=== PATIENT | female | born 1950 | race Caucasian/White ===

== ENCOUNTER 2021-07-26 15:11 | Emergency (ER) | payer OTHER ==
[~2021-07-26] VITALS: Ht 157.5 cm; Wt 99.8 kg
--- NOTE | ~2021-07-26 | EMS ---
[address] [address] EMS Patient Care Report Name: CLARIBEL DAVIS Room #: DEP BRITTANY Nunez#: [id number] Admission: 07/26/21 Attend Phys: Discharge: 07/26/21 Date of : 54 Report #: [id number] THIS REPORT FOR: //name// Report Transmitted: 07/28/2021 10:58 EMS Care Summary [place], [place]/[facility] Incident [id number] @ 07/26/2021 14:48 Incident Location [id number] [facility] [address] Patient CLARIBEL DAVIS Female, 71 Years 1950 Patient Address [id number] [place], [place] [id number] Patient History Hypertension (HTN),Bipolar II Disorder, Patient Allergies No known allergies, Patient Medications Metoprolol, Olanzapine, Lisinopril, Lamotrigine, Chief Complaint HEART PALPATATIONS/ANXIETY Disposition Transported No Lights/[place] Dispatch Reason Sick Person Transported To [facility] Narrative SCENE: ON ARRIVAL PT FOUND SITTING UPRIGHT IN CHAIR IN LIVING ROOM OF ADDRESS PROVIDED. PT IS AWAKE AND ALERT WITH A GCS OF 15. PT REPORTS SHE HAD TWO EPISODES TODAY WHERE SHE FELT HER HEART RACING, IF SHE WERE HAVING AN [address] [address] EMS Patient Care Report Name: CLARIBEL DAVIS Room #: DEP ER Enrique#: [id number] Admission: 07/26/21 Attend Phys: Discharge: 07/26/21 Date of : 54 Report #: [id number] ANXIETY ATTACK. PT REPORTS SHE IS CURRENTLY COMPLAINT FREE. PT ASSISTED TO EMS STRETCHER. AMBULANCE: PT REPORTS SHE HAS A HISTORY OF [facility] BUT HASN'T HAD AN EPISODE IN YEARS AND DOES NOT REMEMBER THE MEDICINE SHE IS PRESCRIBED FOR IT. PT DENIES ALL OTHER COM Initial Vitals @15:05P: 66,R: 14,Pain: 0/10,GCS: 15, @15:07P: 89,R: 16,BP: 97/33,GCS: 15,Revised Trauma: 12, Assessments @14:58MENTAL:No Abnormalities,SKIN:No Abnormalities,HEENT:Head/Face: No Abnormalities,Eyes: No Abnormalities,Neck/Airway: No Abnormalities,LUNG SOUNDS:General: No Abnormalities,Left Upper: No Abnormalities,Right Upper: No Abnormalities,Left Lower: No Abnormalities,Right Lower: No Abnormalities,ABDOMEN:General: No Abnormalities,Left Upper: No Abnormalities,Right Upper: No Abnormalities,Left Lower: No Abnormalities,Right Lower: No Abnormalities,PELVIS//GI:No Abnormalities,EXTREMITIES:Left Arm: No Abnormalities,Right Arm: No Abnormalities,Left Leg: No Abnormalities,Right Leg: No Abnormalities,PULSE:NEURO:No Abnormalities,@15:07MENTAL:No Abnormalities,SKIN:No Abnormalities,HEENT:Head/Face: No Abnormalities,Eyes: No Abnormalities,Neck/Airway: No Abnormalities,LUNG SOUNDS:General: No Abnormalities,Left Upper: No Abnormalities,Right Upper: No Abnormalities,Left Lower: No Abnormalities,Right Lower: No Abnormalities,ABDOMEN:General: No Abnormalities,Left Upper: No Abnormalities,Right Upper: No Abnormalities,Left Lower: No Abnormalities,Right Lower: No Abnormalities,PELVIS//GI:No Abnormalities,EXTREMITIES:Left Arm: No Abnormalities,Right Arm: No Abnormalities,Left Leg: No Abnormalities,Right Leg: No Abnormalities,PULSE:NEURO:No Abnormalities, Impression Chest Pain, Other (Non-Cardiac) Procedures @14:57ALS AssessmentResponse: UnchangedSucceeded@14:58StretcherResponse: Unchanged Timeline 14:47,Call Received 14:47,Dispatch Notified 14:48,Dispatched 14:49,En Route 14:54,On Scene 14:56,At Patient 14:57,ALS Assessment,Response: UnchangedSucceeded, [facility] [address] [place] [address] EMS Patient Care Report Name: CLARIBEL DAVIS Room #: DEP BRITTANY Nunez#: [id number] Admission: 07/26/21 Attend Phys: Discharge: 07/26/21 Date of : 54 Report #: [id number] 14:58,Stretcher,Response: Unchanged 15:02,Depart Scene 15:05,BP: / M,PULSE: 66,RR: 14 R,SPO2: Ox,ETCO2: ,BG: ,PAIN: 0,GCS: 15, 15:07,BP: 97/33 M,PULSE: 89,RR: 16 R,SPO2: Ox,ETCO2: ,BG: ,PAIN: ,GCS: 15, 15:09,At Destination 15:25,Call Closed Disclaimer v1.1 Copyright 2020 [employer] This EMS Care Summary contains data elements from the applicable legal record (which may be displayed differently). It is designed to provide pertinent information for the following purposes: continuity of care, clinical quality, and state data reporting. The complete legal record is available to ED staff and administrators of the receiving hospital in [email or web address]'s Patient Tracker. All data is provided "as is."
[2021-07-26 15:42] LABS: ABSOLUTE NEUTROPHILS 5.5 thou/uL (1.4-8.2); BASOPHILS 0.6 % (0.0-2.0); EOSINOPHILS 0.7 % (0.0-3.0); HEMATOCRIT 39.9 % (37.0-47.0); HEMOGLOBIN 13.4 gm/dL (12.0-15.0); LYMPHOCYTES 19.8 % (24.0-44.0); MCHC 33.5 g/dL (28.0-37.0); MCV 86.6 fL (80.0-100.0); MONOCYTES 6.3 % (1.0-8.0); PLATELET COUNT 218 thou/uL (150-400); POLYS 72.6 % (36.0-66.0); RBC 4.61 mil/uL (4.20-5.00); RDW 13.8 % (10.5-14.5); WBC 7.5 thou/uL (4.0-11.0)
[2021-07-26 15:50] LABS: CALCIUM 9.1 mg/dL (8.5-10.1); POTASSIUM 4.2 mmol/L (3.5-5.1)
[2021-07-26 18:21] VITALS: BP 188/92
--- NOTE | 2021-07-28 07:30 | EKG ---
[facility] [employer] [place] [address] ELECTROCARDIOGRAM REPORT Name: CLARIBEL DAVIS Room #[id number] Admission: 07/26/21 Attend Phys: Discharge: 07/26/21 Date of : 54 Report #: [id number] [facility] ED Test Date: 2021-07-26 Test Time: 15:18:30 Pat Name: CLARIBEL DAVIS Department: Room: Gender: F Saw Filer: : 1950 Requested By: Geena Reyes Order Number: [id number] MD: Jonathan Moore Measurements Intervals [place] Rate: 67 P: 60 ID: [id number] QRS: -11 QRSD: 100 T: 18 QT: 438 QTc: 463 Interpretive Statements Sinus rhythm Consider right atrial enlargement Low voltage, precordial leads No previous ECG available for comparison Electronically Signed On 07-28-2021 7:30:09 CDT by Jonathan Moore [email or web address] <ELECTRONICALLY SIGNED> By: Jonathan Moore MD, [facility] 07/28/21 0730 1518 1518 Jonathan Moore MD, FACC /EPI
--- NOTE | 2021-07-28 07:31 | EKG ---
[facility] [place] [address] ELECTROCARDIOGRAM REPORT Name: CLARIBEL DAVIS Room #: [facility]P [facility] [id number] Admission: 07/26/21 Attend Phys: Discharge: 07/26/21 Date of : 54 Report #: [id number] [facility] ED Test Date: 2021-07-26 Test Time: 16:55:16 Pat Name: CLARIBEL DAVIS Department: Room: Gender: F Stress Analyst: ETHAN : 1950 Requested By: Geena Reyes Order Number: [id number] MD: Jonathan Moore Measurements Intervals [place] Rate: 63 P: 58 NE: 189 QRS: -13 QRSD: 99 T: 11 QT: 463 QTc: 475 Interpretive Statements Sinus rhythm Low voltage, precordial leads Compared to ECG 07/26/2021 15:18:30 No significant changes Electronically Signed On 07-28-2021 7:31:06 CDT by Jonathan Moore [email or web address] <ELECTRONICALLY SIGNED> By: Jonathan Moore MD, [facility] 07/28/21 0731 1655 1655 Jonathan Moore MD, FACC /EPI
== END 2021-07-26 18:15 | disposition home or self-care (01) ==
LOC: ER 15:11
PROVIDERS: Emergency Medicine
DX: R00.2 Palpitations (principal); F31.9 Bipolar disorder, unspecified; I10 Essential (primary) hypertension

== ENCOUNTER → 2021-09-17 | Outpatient (CLI) | payer BC | LOC: SJCVCIMAG 07:37 | PROVIDERS: ATTEND Internal Medicine | DX: I49.3 Ventricular premature depolarization (principal); R00.0 Tachycardia, unspecified; I10 Essential (primary) hypertension; E11.9 Type 2 diabetes mellitus without complications; R00.2 Palpitations; R06.00 Dyspnea, unspecified; Z87.891 Personal history of nicotine dependence; Z79.899 Other long term (current) drug therapy ==